=== PATIENT | female | born 1960 | race Caucasian/White ===

== ENCOUNTER 2020-04-01 11:49 | Emergency (ER) | payer MEDICAID, SELFPAY ==
[2020-04-01 11:51] VITALS: BP 134/76; PULSE 84; RESP 16; TEMP 36.2; O2SAT 98; BMI 25.7
--- NOTE | 2020-04-01 12:08 | RAD_ITS ---
STUDY: X-RAY - LEFT WRIST REASON FOR EXAM: Female, 59 years old. PAIN, STS. HX FALL TECHNIQUE: 3 view(s) of the wrist were obtained. COMPARISON: None. FINDINGS: There is a nondisplaced transverse fracture of the distal radial metaphysis. Normal anatomic alignment is maintained. Normal radiocarpal articulation. Normal distal radioulnar articulation. Normal carpal bones. Normal carpal articulations. Normal carpometacarpal articulation of the thumb. Normal second through fifth carpometacarpal articulations. Tiny bony density is seen at the base of the first metacarpal. This may represent an old injury. Clinical correlation is recommended. Soft tissue swelling. RAD/Wrist min 3 Views IMPRESSION: Nondisplaced transverse fracture of the distal radial metaphysis. Anatomical alignment is maintained. Electronically Signed: Miki Glass, at 13:04 EDT , Service support ,
--- NOTE | 2020-04-01 12:09 | ED.VIS.UPPEX ---
History of Present Illness Chief Complaint: Upper Extremity Injury Informant: Patient Occurred: Today - early this AM, overnight Mechanism/Context: Fall - tripped in the dark in her boyfriend's house Context: Sudden Onset Timing: Continuous Quality of Pain: Aching Location: left wrist, radiating up forearm Current Severity: Severe Maximum Severity: Severe Worsened by: movement Relieved by: remaining still Associated Symptoms: Parasthesia - all fingers including thumb, Loss of Funtion. Negative for: Weakness Narrative: [id number]. No other injuries. Significant pain with trying to supinate or pronate. Denies pain in the elbow, shoulder, hand. Past Medical History - Allergies and Home Meds Allergies/Adverse Reactions: Allergies Penicillins Allergy (Verified 04/01/20 11:54) Rash prochlorperazine [From Compazine] Allergy (Verified 04/01/20 11:54) Anaphylaxis Lives: Alone Smoking Status: Current every day smoker Review of Systems Musculoskeletal: Reports: Swelling, Extremity Pain Skin: Reports: - - bruising wrist Neurological: Reports: Parasthesia. Denies: Weakness Physical Exam Vital Signs/Narrative: Vital Signs Temp Pulse Resp BP Pulse Ox 04/01/20 11:51 97.1 F L 84 16 134/76 H 98 General: Well nourished, Well developed, - - NAD Head: Normocephalic, Atraumatic Neurological: Alert, Oriented x3, Cranial nerves II-XII grossly intact, Normal Strength, Parasthesia - in all left fingers; gross sensation intact Psychological: Normal affect, Normal Mood Diagnostic/Tx/Re-eval Clinical Impression(s) from Imaging Studies Wrist X-Ray 04/01/20 12:08 IMPRESSION: Nondisplaced transverse fracture of the distal radial metaphysis. Anatomical alignment is maintained. Electronically Signed: Miki Glass, at 13:04 EDT , Service support , - Medical Decision Making As above, distal radius fracture appears to be nondisplaced. There may be an intra-articular component but again nondisplaced. She has maintained radial height over the ulna. Therefore no reduction was necessary and she was placed in a splint that was fabricated, see the procedure note. She feels better after that. Given a prescription for a short amount of pain medication after given morphine and prophylactic Zofran here, will follow-up with orthopedics. Procedures - Upper Extremity Splints Upper Extremity Splint: Orthoglass, - - short arm AP splint Splint Fabrication: Fabricated Location: Left - NVID after placement ED Disposition - Plan for ED Patient: Disposition: Home or Assisted Living Diagnosis: Closed fracture of left distal radius Instructions: ED Forearm Fracture without Reduction, ED Splint Care Fiberglass Prescriptions: Hydrocodone Bitart/Apap 5-325 [[place] 5MG-325MG] 1 tab PO Q4H PRN PRN 2 Days #10 tab PRN Reason: Pain Prescription Printed Referrals: Jackelin Shirley DO [STAFF PHYSICIAN] - (anytime within the next 1-2 weeks, or your ortho doc)
[2020-04-01] MEDS: Ondansetron ODT 4 MG Tablet 8 MG PO (14:11)
[2020-04-01] MEDS: Morphine 4 MG/ML Syringe IM (14:11)
[2020-04-01 15:08] VITALS: BP 130/87; PULSE 69; RESP 18; O2SAT 99
--- NOTE | 2020-04-01 15:09 | ED.RN ---
THIS NURSE REVIEWED D/C INSTRUCTIONS WITH PT. PT VERBALIZED UNDERSTANDING OF INSTRUCTIONS. PT DENIES FURTHER NEEDS OR QUESTIONS AT THIS TIME. PT AMBULATES FROM ROOM ON OWN WITHOUT ASSISTANCE FROM STAFF
== END 2020-04-01 15:09 | disposition home or self-care (01) ==
PROVIDERS: Emergency Provider Emergency Medicine
DX: S52.502A Unspecified fracture of the lower end of left radius, initial encounter for closed fracture (principal); F17.200 Nicotine dependence, unspecified, uncomplicated; W19.XXXA Unspecified fall, initial encounter
CPT/HCPCS: 29125; 73110; 96372; 99283